=== PATIENT | female | born 1970 | race Caucasian/White ===

== ENCOUNTER 2022-05-17 08:57 | Day surgery (SDC) | payer OTHER, BC ==
[2022-05-17] MEDS ORDERED: TOPIRAMATE ER50 MG (09:38)
[2022-05-17] MEDS ORDERED: PROGESTERONE200 M1 (09:38)
[2022-05-17] MEDS ORDERED: Armour Thyroid90 MG (09:39)
== END 2022-05-17 12:12 | disposition home or self-care (01) ==
DX: R19.5 Other fecal abnormalities (principal); D12.3 Benign neoplasm of transverse colon; D12.2 Benign neoplasm of ascending colon; K63.5 Polyp of colon; K62.1 Rectal polyp; Z87.891 Personal history of nicotine dependence; E03.9 Hypothyroidism, unspecified; Z79.899 Other long term (current) drug therapy

== ENCOUNTER 2023-05-03 10:32 | Day surgery (SDC) | payer OTHER, BC ==
[~2023-05-03] VITALS: Ht 172.7 cm; Wt 85.8 kg
[~2023-05-03 10:32] MED LIST: Armour Thyroid90 MG; PROGESTERONE200 M1; TOPIRAMATE ER50 MG
[2023-05-03] MEDS ORDERED: MOUNJARO2.5 MG/0.5 (10:46)
[2023-05-03] MEDS ORDERED: CLIMARA1 EACH (10:46)
[2023-05-03] MEDS ORDERED: Vitamin C100 M1 (10:47)
[2023-05-03] MEDS ORDERED: VITAMIN D-40010 MC1 (10:47)
[2023-05-03] MEDS ORDERED: CENTRUM SILVER1 EAC2 (10:47)
[2023-05-03 13:42] VITALS: BP 96/60
--- NOTE | 2023-05-03 13:42 | NUR ---
05/03/23 1342 Leah Nicole MOM PRESENT IN ROOM FOR DR. HARRIS TO DISCUSS PROCEEDURE. NO QUESTIONS OR CONCERNS FROM EITHER LIBERTARIAN.
== END 2023-05-03 13:35 | disposition home or self-care (01) ==
LOC: ORSCSDS 10:32
PROVIDERS: Internal Medicine Gastroenterology
PROC: 0DBL8ZX Excision of Transverse Colon, Via Natural or Artificial Opening Endoscopic, Diagnostic (ICD-10-PCS; principal; 2023-05-03 12:00)
DX: Z86.010 Personal history of colon polyps (principal); K63.5 Polyp of colon; Z87.891 Personal history of nicotine dependence
CPT/HCPCS: 88305; J2250; J2704; J7120

== ENCOUNTER → 2024-01-02 | Outpatient (CLI) | payer OTHER ==
[~2024-01-02] MED LIST changes: +CENTRUM SILVER1 EAC2; +CLIMARA1 EACH; +MOUNJARO2.5 MG/0.5; +VITAMIN D-40010 MC1; +Vitamin C100 M1
[2024-01-07 18:02] LABS: HPV HIGH RISK BY TMA Not Detected; HPV SOURCE Vaginal
== END ==
LOC: LAB 15:31 → LAB SHORT 15:31
PROVIDERS: Obstetrics & Gynecology
DX: Z01.419 Encounter for gynecological examination (general) (routine) without abnormal findings (principal)
CPT/HCPCS: 87624; G0123

== ENCOUNTER 2024-05-02 09:01 | Day surgery (SDC) | payer OTHER ==
[~2024-05-02] VITALS: Ht 172.7 cm; Wt 73.4 kg
[~2024-05-02 09:01] MED LIST changes: +Lactated Ringer's 1,000 ML IV ONE; +propofoL 50 ML IV ONE
[2024-05-02] MEDS ORDERED: PREG50 (09:41)
[2024-05-02] MEDS ORDERED: Lactated Ringer's 1,000 ML IV ONE (10:02)
[2024-05-02] MEDS ORDERED: ePHEDrine Sulfate 50 MG/ML 1ML Injection ONE (11:05)
[2024-05-02 11:38] VITALS: BP 91/65
== END 2024-05-02 11:28 | disposition home or self-care (01) ==
LOC: ORSCSDS 09:01
PROVIDERS: Internal Medicine Gastroenterology
PROC: 0DBL8ZX Excision of Transverse Colon, Via Natural or Artificial Opening Endoscopic, Diagnostic (ICD-10-PCS; principal; 2024-05-02 10:30)
DX: Z12.11 Encounter for screening for malignant neoplasm of colon (principal); Z86.0101 Personal history of adenomatous and serrated colon polyps; Z83.719 Family history of colon polyps, unspecified; Z79.899 Other long term (current) drug therapy
CPT/HCPCS: 88305; J2704; J7120

== ENCOUNTER → 2024-06-07 | Outpatient (CLI) | payer OTHER ==
[~2024-06-07] MED LIST changes: -Lactated Ringer's 1,000 ML IV ONE; +PREG50; -propofoL 50 ML IV ONE
== END ==
LOC: LAB 18:25 → LAB SHORT 18:25
DX: R82.81 Pyuria (principal)
CPT/HCPCS: 87077; 87086; 87186

== ENCOUNTER → 2024-12-30 | Outpatient (CLI) | payer OTHER | END | disposition home or self-care (01) | LOC: LAB 18:04 → LAB SHORT 18:04 | DX: N39.0 Urinary tract infection, site not specified (principal) | CPT/HCPCS: 87077; 87086; 87186 ==